=== PATIENT | female | born 1975 | race Caucasian/White ===

== ENCOUNTER 2016-12-23 10:14 | Observation (INO) | payer MEDICAID ==
[~2016-12-23] VITALS: Ht 162.6 cm; Wt 78.1 kg
[2016-12-23] MEDS ORDERED: QUET100T4 PO (11:00)
[2016-12-23] MEDS ORDERED: GABA600T PO (11:00)
[2016-12-23] MEDS ORDERED: SERT50TA PO (11:00)
[2016-12-23] MEDS ORDERED: BACITRACIN ZINC OINT 500U/GM, 0.9 GM ONE (11:16)
[2016-12-23 11:30] LABS: ASPARTATE AMINO TRANSFERASE 20 U/L (15-37); BLOOD UREA NITROGEN 10 mg/dL (7-18)
[2016-12-23 11:42] LABS: ACETAMINOPHEN < 2 mcg/mL (10-30)
[2016-12-23 11:48] LABS: DAU SCREEN DISCLAIMER
[2016-12-23] MEDS ORDERED: LORazepam 1MG TABLET ONE ×2 (11:53→15:17)
[2016-12-23] MEDS ORDERED: LORazepam 1MG TABLET PO ONE (12:00)
[2016-12-23] MEDS ORDERED: POLYETHYLENE GLYCOL 17 GM PACKET PO PRN (15:00)
[2016-12-23] MEDS ORDERED: BISACODYL 10 MG SUPP PR PRN (15:00)
[2016-12-23] MEDS ORDERED: ACETAMINOPHEN 325 MG TABLET PO PRN (15:00)
[2016-12-23] MEDS ORDERED: DOCUSATE 100 MG CAPSULE PO PRN (15:00)
[2016-12-23] MEDS: LORazepam 1MG TABLET PO PRN ×2 (15:19→22:23)
[2016-12-23 15:55] VITALS: BP 161/105
[2016-12-23] MEDS ORDERED: PRAZ2CAP2 PO (16:01)
[2016-12-23] MEDS ORDERED: BUPR1FIL3 SL (16:08)
[2016-12-23] MEDS: AMLODIPINE 5 MG TABLET PO SCH (16:15)
[2016-12-23 17:42] LABS: HCG UR OBC PASS
[2016-12-23 18:54] VITALS: BP 135/88
[2016-12-23 20:21] VITALS: BP 135/94
[2016-12-23] MEDS: QUETIAPINE 100MG TABLET PO SCH (21:00)
[2016-12-23] MEDS: PRAZOSIN 2 MG CAPSULE PO SCH (21:00)
[2016-12-23] MEDS: PHENOBARBITAL 100 MG TABLET PO SCH (22:22)
[2016-12-23] MEDS: GABAPENTIN 300 MG CAPSULE PO SCH (22:23)
[2016-12-24] MEDS: PRAZOSIN 2 MG CAPSULE PO SCH ×3 (07:55→20:47)
[2016-12-24] MEDS: AMLODIPINE 5 MG TABLET PO SCH (08:23)
[2016-12-24] MEDS: LORazepam 1MG TABLET PO PRN ×3 (08:23→17:10)
[2016-12-24] MEDS: GABAPENTIN 300 MG CAPSULE PO SCH ×2 (08:23→20:46)
[2016-12-24 08:41] VITALS: BP 144/91
[2016-12-24] MEDS ORDERED: SERTRALINE 50MG TABLET PO SCH (09:00)
[2016-12-24] MEDS ORDERED: QUETIAPINE 100MG TABLET PO SCH (09:00)
[2016-12-24] MEDS ORDERED: ERGOCALCIFEROL 50,000 UNIT CAPSULE PO SCH (10:30)
[2016-12-24 12:47] VITALS: BP 139/89
[2016-12-24] MEDS ORDERED: FERROUS GLUCONATE 324 MG TABLET PO SCH (18:30)
[2016-12-24 20:34] VITALS: BP 134/86
[2016-12-24] MEDS: QUETIAPINE 100MG TABLET PO SCH (20:47)
[2016-12-24] MEDS: PHENOBARBITAL 100 MG TABLET PO SCH (21:00)
== END 2016-12-24 21:00 ==
LOC: EDBD 10:14 → ED 11:39 → EDIP 12:28 → 3E 15:45
PROVIDERS: ADMIT Internal Medicine; ATTEND Internal Medicine
DX: R45.851 Suicidal ideations (principal); F32.9 Major depressive disorder, single episode, unspecified; F43.10 Post-traumatic stress disorder, unspecified; F41.1 Generalized anxiety disorder; G47.00 Insomnia, unspecified; D50.9 Iron deficiency anemia, unspecified; E55.9 Vitamin D deficiency, unspecified; Z91.410 Personal history of adult physical and sexual abuse; Z90.49 Acquired absence of other specified parts of digestive tract; Z98.51 Tubal ligation status; Z81.8 Family history of other mental and behavioral disorders
CPT/HCPCS: 36415; 80053; 80184; 80307; 80329; 81001; 81025; 82306; 82607; 82728; 83540; 83550; 84439; 84443; 84466; 85025; 99285; G0378; G0480

== ENCOUNTER 2017-01-05 16:47 | Emergency (ER) | payer MEDICAID ==
[~2017-01-05] VITALS: Ht 162.6 cm; Wt 79.7 kg
[~2017-01-05 16:47] MED LIST: BUPR1FIL3 SL; GABA600T PO; PRAZ2CAP2 PO; QUET100T4 PO; SERT50TA PO
[2017-01-05] MEDS ORDERED: ONDANSETRON 2MG/ML, 2ML IVPush ONE (17:30)
[2017-01-05] MEDS ORDERED: SODIUM CHLORIDE 0.9% 1,000ML IVBOLUS ONE (17:30)
[2017-01-05] MEDS ORDERED: MORPHINE SULFATE 4 MG/ML, 1ML ONE ×2 (17:31→18:32)
[2017-01-05] MEDS ORDERED: ONDANSETRON 2MG/ML, 2ML ONE (17:31)
[2017-01-05] MEDS: MORPHINE SULFATE 4 MG/ML, 1ML IVPush PRN ×2 (17:34→18:35)
[2017-01-05 18:00] LABS: ASPARTATE AMINO TRANSFERASE 19 U/L (15-37); BLOOD UREA NITROGEN 14 mg/dL (7-18)
[2017-01-05] MEDS ORDERED: SODIUM CHLORIDE FLUSH 10ML SYR IVF ONE (18:00)
[2017-01-05 19:31] VITALS: BP 146/92
== END 2017-01-05 19:33 | disposition home or self-care (01) ==
LOC: ED 18:46
DX: N39.0 Urinary tract infection, site not specified (principal); Z90.49 Acquired absence of other specified parts of digestive tract; Z88.0 Allergy status to penicillin; Z88.6 Allergy status to analgesic agent; Z88.8 Allergy status to other drugs, medicaments and biological substances
CPT/HCPCS: 36415; 74176; 80053; 81001; 84703; 85025; 87086; 96361; 96374; 96375; 96376; 99285; J2405; J7030

== ENCOUNTER 2017-01-12 11:14 | Emergency (ER) | payer MEDICAID ==
[~2017-01-12] VITALS: Ht 162.6 cm; Wt 78.6 kg
[2017-01-12] MEDS ORDERED: ONDANSETRON 2MG/ML, 2ML ONE (12:55)
[2017-01-12] MEDS ORDERED: MORPHINE SULFATE 4 MG/ML, 1ML ONE ×2 (12:55→13:34)
[2017-01-12] MEDS ORDERED: SODIUM CHLORIDE 0.9% 1,000ML IVBOLUS ONE (13:00)
[2017-01-12] MEDS ORDERED: SODIUM CHLORIDE FLUSH 10ML SYR IVF ONE (13:00)
[2017-01-12] MEDS ORDERED: MORPHINE SULFATE 4 MG/ML, 1ML IVPush PRN (13:00)
[2017-01-12] MEDS ORDERED: ONDANSETRON 2MG/ML, 2ML IVPush ONE (13:00)
[2017-01-12] MEDS ORDERED: QUET300T PO (13:04)
[2017-01-12] MEDS ORDERED: SERT100T5 PO (13:04)
[2017-01-12] MEDS ORDERED: PHEN100T2 PO (13:04)
[2017-01-12 13:23] LABS: ASPARTATE AMINO TRANSFERASE 16 U/L (15-37); BLOOD UREA NITROGEN 8 mg/dL (7-18)
[2017-01-12 14:56] VITALS: BP 163/101
== END 2017-01-12 14:58 | disposition home or self-care (01) ==
LOC: ED 13:14
DX: R30.0 Dysuria (principal); K21.9 Gastro-esophageal reflux disease without esophagitis; Z90.49 Acquired absence of other specified parts of digestive tract; Z88.0 Allergy status to penicillin; Z88.6 Allergy status to analgesic agent; Z88.8 Allergy status to other drugs, medicaments and biological substances
CPT/HCPCS: 36415; 80053; 81001; 83690; 84703; 85025; 87086; 96361; 96374; 96375; 99284; J2405; J7030

== ENCOUNTER 2017-01-15 13:50 | Inpatient (IN) | payer MEDICAID ==
[~2017-01-15] VITALS: Ht 162.6 cm; Wt 81.8 kg
[~2017-01-15 13:50] MED LIST changes: +PHEN100T2 PO; +QUET300T PO; +SERT100T5 PO
[2017-01-15] MEDS ORDERED: SODIUM CHLORIDE FLUSH 10ML SYR IVF ONE (14:30)
[2017-01-15] MEDS ORDERED: SODIUM CHLORIDE 0.9% 1,000ML IV ONE (14:30)
[2017-01-15 15:04] LABS: BLOOD UREA NITROGEN 7 mg/dL (7-18)
[2017-01-15 15:09] LABS: ASPARTATE AMINO TRANSFERASE 55 U/L (15-37)
[2017-01-15] MEDS ORDERED: MORPHINE SULFATE 4 MG/ML, 1ML IVPush PRN (16:30)
[2017-01-15] MEDS ORDERED: ACETAMINOPHEN 500 MG TABLET PO ONE (16:30)
[2017-01-15] MEDS ORDERED: ONDANSETRON 2MG/ML, 2ML IVPush ONE (16:30)
[2017-01-15] MEDS ORDERED: MORPHINE SULFATE 4 MG/ML, 1ML ONE (17:30)
[2017-01-15] MEDS ORDERED: ACETAMINOPHEN 500 MG TABLET ONE (17:30)
[2017-01-15] MEDS ORDERED: ONDANSETRON 2MG/ML, 2ML ONE (17:30)
[2017-01-15] MEDS ORDERED: HYDROmorphone 1 MG/ML, 1ML ONE ×3 (18:28→21:05)
[2017-01-15] MEDS: HYDROmorphone 1 MG/ML, 1ML IVPush PRN ×3 (18:30→21:09)
[2017-01-15] MEDS ORDERED: OMNIPAQUE 350 MG/ML, 100ML BOTTLE ONE (18:53)
[2017-01-15] MEDS ORDERED: PIPERACILLIN/TAZO/PMX 3.375GM 50 ML ONE (20:24)
[2017-01-15] MEDS ORDERED: PIPERACILLIN/TAZO/PMX 3.375GM 50 ML IV ONE (20:30)
[2017-01-15] MEDS: HYDROmorphone 2 MG/ML, 1ML IVPush PRN ×2 (21:09→23:50)
[2017-01-15] MEDS ORDERED: DOCUSATE 100 MG CAPSULE PO PRN (22:00)
[2017-01-15] MEDS: ENALAPRILAT 1.25 MG/ML, 2ML IVPush PRN (23:49)
[2017-01-15] MEDS: HEPARIN 5,000 UNITS/ML, 1ML SQ SCH (23:50)
[2017-01-15] MEDS: SODIUM CHLORIDE 0.9% 1,000 ML IV SCH (23:50)
[2017-01-16] MEDS: HYDROmorphone 2 MG/ML, 1ML IVPush PRN ×8 (00:07→21:30)
[2017-01-16] MEDS: ONDANSETRON 2MG/ML, 2ML IVPush PRN ×2 (00:07→05:52)
[2017-01-16 03:20] VITALS: BP 148/90
[2017-01-16] MEDS: PIPERACILLIN/TAZO/PMX 3.375GM 50 ML IV SCH ×3 (03:27→23:21)
[2017-01-16] MEDS ORDERED: POTASSIUM CHLORIDE 20 MEQ in SODIUM CHLORIDE 0.9% 250 ML IV ONE (03:30)
[2017-01-16 05:44] LABS: BLOOD UREA NITROGEN 7 mg/dL (7-18)
[2017-01-16] MEDS: SODIUM CHLORIDE 0.9% 1,000 ML IV SCH ×3 (05:51→21:31)
[2017-01-16] MEDS ORDERED: LORazepam 2 MG/ML, 1ML ONE (06:29)
[2017-01-16] MEDS ORDERED: LORazepam 2 MG/ML, 1ML IVPush ONE (06:30)
[2017-01-16 08:00] VITALS: BP 151/99
[2017-01-16] MEDS: HEPARIN 5,000 UNITS/ML, 1ML SQ SCH ×2 (09:03→16:00)
[2017-01-16 09:54] LABS: TOTAL IRON BINDING CAPACITY 368 mcg/dL (250-450)
[2017-01-16 09:55] LABS: ASPARTATE AMINO TRANSFERASE 39 U/L (15-37)
[2017-01-16 10:04] LABS: TRANSFERRIN 249 mg/dL (200-360)
[2017-01-16 12:43] VITALS: BP 173/112
[2017-01-16] MEDS ORDERED: PROMETHAZINE 12.5 MG SUPP PR PRN (15:00)
[2017-01-16] MEDS: PANTOPRAZOLE 40 MG IV IVPush SCH (15:30)
[2017-01-16] MEDS ORDERED: LORazepam 2 MG/ML, 1ML IVPush PRN (15:30)
[2017-01-16] MEDS ORDERED: ONDANSETRON 2MG/ML, 2ML IVPush SCH (16:00)
[2017-01-16 19:30] VITALS: BP 171/113
[2017-01-16 19:49] VITALS: BP 169/129
[2017-01-16] MEDS: ENALAPRILAT 1.25 MG/ML, 2ML IVPush PRN (19:49)
[2017-01-16] MEDS: ONDANSETRON 2MG/ML, 2ML IVPush SCH (23:21)
[2017-01-16] MEDS: QUETIAPINE 100MG TABLET PO SCH (23:22)
[2017-01-16] MEDS: PRAZOSIN 2 MG CAPSULE PO SCH (23:22)
[2017-01-17] MEDS: HEPARIN 5,000 UNITS/ML, 1ML SQ SCH ×3 (00:35→16:00)
[2017-01-17] MEDS: HYDROmorphone 2 MG/ML, 1ML IVPush PRN ×6 (00:36→20:06)
[2017-01-17 03:03] VITALS: BP 130/65
[2017-01-17] MEDS: PANTOPRAZOLE 40 MG IV IVPush SCH (03:52)
[2017-01-17] MEDS: ONDANSETRON 2MG/ML, 2ML IVPush SCH ×5 (03:52→20:06)
[2017-01-17 05:24] LABS: ASPARTATE AMINO TRANSFERASE 28 U/L (15-37); BLOOD UREA NITROGEN 5 mg/dL (7-18)
[2017-01-17] MEDS: SODIUM CHLORIDE 0.9% 1,000 ML IV SCH (05:31)
[2017-01-17 07:15] VITALS: BP 143/97
[2017-01-17] MEDS: PIPERACILLIN/TAZO/PMX 3.375GM 50 ML IV SCH ×2 (08:18→13:47)
[2017-01-17] MEDS ORDERED: POTASSIUM CHLORIDE 20 MEQ TAB.ER.PRT PO SCH (08:30)
[2017-01-17 09:42] LABS: HEPATITIS C VIRUS ANTIBODY Reactive (Nonreactive)
[2017-01-17] MEDS: IRON SUCROSE COMPLEX 100MG/5ML IV SCH (10:59)
[2017-01-17] MEDS: OXYcodone IR 5MG TABLET PO PRN ×2 (11:00→18:06)
[2017-01-17] MEDS ORDERED: POLYETHYLENE GLYCOL 17 GM PACKET PO PRN (11:00)
[2017-01-17] MEDS: SENNA/DOCUSATE TABLET PO SCH (13:46)
[2017-01-17] MEDS: LORazepam 0.5MG TABLET PO PRN (13:46)
[2017-01-17] MEDS: PANTOPRAZOLE 20MG TABLET PO SCH ×2 (13:46→20:06)
[2017-01-17] MEDS: PHENAZOPYRIDINE 100 MG TABLET PO PRN (13:47)
[2017-01-17 14:35] VITALS: BP 142/91
[2017-01-17 19:26] LABS: OCCBLD OBC PASS
[2017-01-17 19:53] VITALS: BP 152/96
[2017-01-17] MEDS: AMOXICILLIN/CLAV 875-125MG TABLET PO SCH (20:05)
[2017-01-17] MEDS: QUETIAPINE 100MG TABLET PO SCH (20:06)
[2017-01-17] MEDS: PRAZOSIN 2 MG CAPSULE PO SCH (20:07)
[2017-01-17] MEDS ORDERED: SODIUM CHLORIDE 0.9% 1,000 ML IV SCH (21:31)
[2017-01-18] MEDS: HYDROmorphone 2 MG/ML, 1ML IVPush PRN ×3 (00:37→08:35)
[2017-01-18] MEDS: ONDANSETRON 2MG/ML, 2ML IVPush SCH ×3 (00:37→08:35)
[2017-01-18 02:00] VITALS: BP 142/96
[2017-01-18] MEDS: OXYcodone IR 5MG TABLET PO PRN ×3 (05:48→13:52)
[2017-01-18 05:49] LABS: BLOOD UREA NITROGEN 5 mg/dL (7-18)
[2017-01-18 05:55] LABS: ASPARTATE AMINO TRANSFERASE 26 U/L (15-37)
[2017-01-18 07:00] VITALS: BP 148/97
[2017-01-18] MEDS ORDERED: POTASSIUM CHLORIDE 20 MEQ TAB.ER.PRT PO SCH (08:27)
[2017-01-18] MEDS: HEPARIN 5,000 UNITS/ML, 1ML SQ SCH ×3 (08:35→16:00)
[2017-01-18] MEDS: AMOXICILLIN/CLAV 875-125MG TABLET PO SCH (08:35)
[2017-01-18] MEDS: IRON SUCROSE COMPLEX 100MG/5ML IV SCH (08:35)
[2017-01-18] MEDS: PANTOPRAZOLE 20MG TABLET PO SCH (08:36)
[2017-01-18] MEDS: PHENAZOPYRIDINE 100 MG TABLET PO PRN (08:36)
[2017-01-18] MEDS: SENNA/DOCUSATE TABLET PO SCH (09:00)
[2017-01-18] MEDS ORDERED: MAGNESIUM SULFATE PMX 4GM/100M 100 ML IV ONE (09:30)
[2017-01-18] MEDS ORDERED: ONDANSETRON ODT 4 MG PO PRN (09:30)
[2017-01-18] MEDS: LORazepam 0.5MG TABLET PO PRN (10:01)
[2017-01-18 11:31] LABS: OCCBLD OBC PASS
[2017-01-18] MEDS ORDERED: MAALOX/HYOSCYAMINE/LIDOCAINE 45 ML BOTTLE PO ONE (12:30)
[2017-01-18 12:49] VITALS: BP 185/127
[2017-01-18] MEDS: LACTOBACILLUS CHEW TABLET PO SCH ×2 (12:58→16:00)
[2017-01-18 13:19] LABS: IS PT STATUS REG ER OR PRE ER? NO
[2017-01-18] MEDS ORDERED: AMOX1TAB12 PO (16:40)
[2017-01-18] MEDS ORDERED: PANT20TA3 PO (16:40)
[2017-01-18] MEDS ORDERED: OXYC5TAB3 PO (16:40)
[2017-01-18] MEDS ORDERED: LORA-445 PO (16:40)
[2017-01-18] MEDS ORDERED: ONDA4TAB13 PO (16:40)
[2017-01-18] MEDS ORDERED: LISI5TAB7 PO (16:40)
[2017-01-18] MEDS ORDERED: ACID1TAB7 PO (16:40)
[2017-01-18] MEDS ORDERED: DOCU-30 PO (16:43)
[2017-01-18] MEDS ORDERED: FERR500P8 PO (16:43)
[2017-01-19 13:06] LABS: HEPATITIS C PCR QUANTITATION HCV Not Detected IU/mL (.)
== END 2017-01-18 17:17 | disposition home or self-care (01) | DRG 392 ==
LOC: ED 20:21 → EDIP 20:22 → ED 20:55 → 3NE 21:40
PROVIDERS: ADMIT Internal Medicine; ATTEND Internal Medicine
PROC: 0T9B70Z Drainage of Bladder with Drainage Device, Via Natural or Artificial Opening (ICD-10-PCS; principal; 2017-01-15)
DX: R10.9 Unspecified abdominal pain (principal); E87.1 Hypo-osmolality and hyponatremia; E87.6 Hypokalemia; F43.10 Post-traumatic stress disorder, unspecified; R50.9 Fever, unspecified; I10 Essential (primary) hypertension; K44.9 Diaphragmatic hernia without obstruction or gangrene; K21.9 Gastro-esophageal reflux disease without esophagitis; D50.9 Iron deficiency anemia, unspecified; Z90.49 Acquired absence of other specified parts of digestive tract; Z79.899 Other long term (current) drug therapy; Z98.51 Tubal ligation status; Z88.5 Allergy status to narcotic agent; Z88.0 Allergy status to penicillin; Z88.8 Allergy status to other drugs, medicaments and biological substances; Z82.5 Family history of asthma and other chronic lower respiratory diseases; Z81.8 Family history of other mental and behavioral disorders; Z91.013 Allergy to seafood
CPT/HCPCS: 36415; 71020; 74177; 74181; 76770; 80048; 80053; 80074; 80076; 81003; 82272; 82728; 83540; 83550; 83605; 83690; 83735; 84100; 84145; 84443; 84466; 84484; 84703; 85025; 87040; 87324; 87491; 87521; 87522; 87591; 93005; 96361; 96365; 96375; 96376; J1170; J1644; J1756; J2405; J2543; J3480; Q9967; C9113; J2060; J3475; J7030; J7050

== ENCOUNTER 2017-01-20 21:06 | Emergency (ER) | payer MEDICAID ==
[~2017-01-20] VITALS: Ht 162.6 cm; Wt 76.9 kg
[~2017-01-20 21:06] MED LIST changes: +ACID1TAB7 PO; +AMOX1TAB12 PO; +DOCU-30 PO; +FERR500P8 PO; +LISI5TAB7 PO; +LORA-445 PO; +ONDA4TAB13 PO; +OXYC5TAB3 PO; +PANT20TA3 PO
[2017-01-20] MEDS ORDERED: methylPREDNISolone SOD SUCC 125 MG/2 ML IM SCH (23:00)
[2017-01-20] MEDS ORDERED: HYDROmorphone 1 MG/ML, 1ML IM ONE (23:00)
[2017-01-20] MEDS ORDERED: methylPREDNISolone SOD SUCC 125 MG/2 ML ONE (23:19)
[2017-01-20] MEDS ORDERED: HYDROmorphone 1 MG/ML, 1ML ONE (23:19)
[2017-01-20] MEDS ORDERED: ASPIRIN 325 MG TABLET EC ONE (23:19)
[2017-01-20 23:25] LABS: BLOOD UREA NITROGEN 13 mg/dL (7-18)
[2017-01-20 23:30] VITALS: BP 173/111
[2017-01-20] MEDS ORDERED: ASPIRIN 325 MG TABLET PEG ONE (23:30)
[2017-01-21] MEDS ORDERED: HYDROmorphone 1 MG/ML, 1ML ONE (00:24)
[2017-01-21] MEDS ORDERED: HYDROmorphone 1 MG/ML, 1ML IM ONE (00:30)
== END 2017-01-21 01:20 | disposition home or self-care (01) ==
LOC: ED 23:08
DX: I80.8 Phlebitis and thrombophlebitis of other sites (principal); K21.9 Gastro-esophageal reflux disease without esophagitis; Z79.82 Long term (current) use of aspirin; Z90.49 Acquired absence of other specified parts of digestive tract
CPT/HCPCS: 36415; 80048; 81001; 82040; 85025; 93971; 96372; 99285; J1170; J2930

== ENCOUNTER 2017-01-22 15:17 | Observation (INO) | payer MEDICAID ==
[~2017-01-22] VITALS: Ht 162.6 cm; Wt 65.0 kg
[2017-01-22] MEDS ORDERED: ZIPRASIDONE 20 MG INJ IM ONE (15:28)
[2017-01-22] MEDS ORDERED: ZIPRASIDONE 20MG CAPSULE ONE (15:44)
[2017-01-22] MEDS ORDERED: PLEASE ENTER HEIGHT AND WEIGHT MC SCH (16:00)
[2017-01-22] MEDS ORDERED: ZIPRASIDONE 20MG CAPSULE PO ONE (16:00)
[2017-01-22 16:11] LABS: ASPARTATE AMINO TRANSFERASE 20 U/L (15-37); BLOOD UREA NITROGEN 12 mg/dL (7-18)
[2017-01-22 16:15] LABS: ACETAMINOPHEN < 2 mcg/mL (10-30)
[2017-01-22] MEDS ORDERED: ONDANSETRON ODT 4 MG PO ONE (16:30)
[2017-01-22] MEDS ORDERED: ACETAMINOPHEN 325 MG TABLET PO ONE (16:30)
[2017-01-22] MEDS ORDERED: ONDANSETRON ODT 4 MG ONE (17:24)
[2017-01-22] MEDS ORDERED: ACETAMINOPHEN 325 MG TABLET ONE (17:24)
[2017-01-22] MEDS ORDERED: LISINOPRIL 5 MG TABLET PO ONE (17:30)
[2017-01-22] MEDS ORDERED: POLYETHYLENE GLYCOL 17 GM PACKET PO PRN (17:30)
[2017-01-22] MEDS ORDERED: BISACODYL 10 MG SUPP PR PRN (17:30)
[2017-01-22] MEDS ORDERED: DOCUSATE 100 MG CAPSULE PO PRN (17:30)
[2017-01-22] MEDS ORDERED: LORazepam 1MG TABLET ONE (18:07)
[2017-01-22 21:38] LABS: DAU SCREEN DISCLAIMER
[2017-01-23] MEDS: LORazepam 1MG TABLET PO PRN ×4 (04:11→19:25)
[2017-01-23 07:44] VITALS: BP 163/113
[2017-01-23] MEDS: LISINOPRIL 5 MG TABLET PO SCH (07:52)
[2017-01-23] MEDS: ACETAMINOPHEN 325 MG TABLET PO PRN (08:16)
[2017-01-23 08:50] VITALS: BP 136/78
[2017-01-23] MEDS: GABAPENTIN 300 MG CAPSULE PO SCH ×4 (09:00→20:04)
[2017-01-23] MEDS: FERROUS SULFATE 325 MG TABLET PO SCH ×4 (09:00→20:04)
[2017-01-23] MEDS: SERTRALINE 100MG TABLET PO SCH (09:04)
[2017-01-23] MEDS: QUETIAPINE 100MG TABLET PO SCH (09:05)
[2017-01-23] MEDS: ENOXAPARIN 40 MG/0.4 ML SQ SCH (16:17)
[2017-01-23 20:52] VITALS: BP 131/86
[2017-01-23] MEDS: PRAZOSIN 2 MG CAPSULE PO SCH ×2 (21:01→21:03)
[2017-01-24 07:12] VITALS: BP 128/74
[2017-01-24] MEDS: FERROUS SULFATE 325 MG TABLET PO SCH ×3 (08:22→20:06)
[2017-01-24] MEDS: SERTRALINE 100MG TABLET PO SCH (08:22)
[2017-01-24] MEDS: LISINOPRIL 5 MG TABLET PO SCH (08:22)
[2017-01-24] MEDS: ASPIRIN 325 MG TABLET PO SCH (08:22)
[2017-01-24] MEDS: GABAPENTIN 300 MG CAPSULE PO SCH ×3 (08:23→20:06)
[2017-01-24] MEDS: LORazepam 1MG TABLET PO PRN (08:30)
[2017-01-24] MEDS: QUETIAPINE 100MG TABLET PO SCH ×2 (09:00→20:07)
[2017-01-24] MEDS ORDERED: LORazepam 1MG TABLET PO ONE (12:30)
[2017-01-24] MEDS: ENOXAPARIN 40 MG/0.4 ML SQ SCH (16:10)
[2017-01-24] MEDS: PROPRANOLOL 10 MG TABLET PO SCH (18:02)
[2017-01-24 19:52] VITALS: BP 166/102
[2017-01-24] MEDS: PRAZOSIN 2 MG CAPSULE PO SCH (20:06)
[2017-01-24 20:38] VITALS: BP 138/77
[2017-01-25 06:12] VITALS: BP 135/75
[2017-01-25] MEDS: PROPRANOLOL 10 MG TABLET PO SCH (06:12)
[2017-01-25] MEDS: LORazepam 1MG TABLET PO PRN ×3 (07:05→15:59)
[2017-01-25 08:00] VITALS: BP 129/75
[2017-01-25] MEDS: ASPIRIN 325 MG TABLET PO SCH (08:02)
[2017-01-25] MEDS: LISINOPRIL 5 MG TABLET PO SCH (08:02)
[2017-01-25] MEDS: FERROUS SULFATE 325 MG TABLET PO SCH ×3 (08:03→20:10)
[2017-01-25] MEDS: ACETAMINOPHEN 325 MG TABLET PO PRN (08:03)
[2017-01-25] MEDS: GABAPENTIN 300 MG CAPSULE PO SCH (08:03)
[2017-01-25] MEDS: SERTRALINE 100MG TABLET PO SCH (08:23)
[2017-01-25] MEDS ORDERED: BENZTROPINE 1 MG TABLET PO ONE (13:51)
[2017-01-25] MEDS: GABAPENTIN 400 MG CAPSULE PO SCH ×2 (15:09→20:10)
[2017-01-25] MEDS: ENOXAPARIN 40 MG/0.4 ML SQ SCH (15:11)
[2017-01-25] MEDS: QUETIAPINE 25MG TABLET PO PRN (16:55)
[2017-01-25 19:26] VITALS: BP 166/87
[2017-01-25] MEDS: PRAZOSIN 2 MG CAPSULE PO SCH (20:11)
[2017-01-25] MEDS: BENZTROPINE 1 MG TABLET PO SCH (20:11)
[2017-01-25] MEDS ORDERED: QUETIAPINE 100MG TABLET PO ONE (21:00)
[2017-01-26] MEDS: PANTOPRAZOLE GRAN. PKT 40 MG PO SCH (06:09)
[2017-01-26 06:20] VITALS: BP 159/95
[2017-01-26] MEDS: LORazepam 1MG TABLET PO PRN ×2 (06:39→10:31)
[2017-01-26 07:17] VITALS: BP 164/110
[2017-01-26] MEDS: LISINOPRIL 5 MG TABLET PO SCH (07:37)
[2017-01-26] MEDS: ASPIRIN 325 MG TABLET PO SCH (08:44)
[2017-01-26] MEDS: BENZTROPINE 1 MG TABLET PO SCH ×2 (08:44→20:08)
[2017-01-26] MEDS: GABAPENTIN 400 MG CAPSULE PO SCH ×3 (08:45→20:08)
[2017-01-26] MEDS: SERTRALINE 100MG TABLET PO SCH (08:45)
[2017-01-26] MEDS: FERROUS SULFATE 325 MG TABLET PO SCH ×3 (08:46→20:08)
[2017-01-26] MEDS: QUETIAPINE 25MG TABLET PO PRN (09:50)
[2017-01-26] MEDS ORDERED: ZIPRASIDONE 20 MG INJ IM PRN (12:00)
[2017-01-26] MEDS ORDERED: LORazepam 2 MG/ML, 1ML IM PRN (15:30)
[2017-01-26] MEDS: ENOXAPARIN 40 MG/0.4 ML SQ SCH (16:00)
[2017-01-26] MEDS: LORazepam 2 MG/ML, 1ML IM PRN ×3 (16:01→20:57)
[2017-01-26 19:37] VITALS: BP 159/102
[2017-01-26] MEDS: PRAZOSIN 2 MG CAPSULE PO SCH (20:08)
[2017-01-26] MEDS: QUETIAPINE 100MG TABLET PO SCH (20:08)
[2017-01-26] MEDS ORDERED: QUETIAPINE 100MG TABLET PO SCH (21:00)
[2017-01-26] MEDS ORDERED: QUETIAPINE 200 MG TABLET PO SCH (21:00)
[2017-01-27] VITALS (7 sets, daily range): BP systolic 141–187; BP diastolic 82–131
[2017-01-27] MEDS: PANTOPRAZOLE GRAN. PKT 40 MG PO SCH (06:46)
[2017-01-27] MEDS: BENZTROPINE 1 MG TABLET PO SCH ×3 (07:44→22:18)
[2017-01-27] MEDS: SERTRALINE 100MG TABLET PO SCH (07:45)
[2017-01-27] MEDS: LORazepam 1MG TABLET PO PRN ×3 (07:46→16:19)
[2017-01-27] MEDS: GABAPENTIN 400 MG CAPSULE PO SCH ×4 (07:46→22:18)
[2017-01-27] MEDS: LISINOPRIL 5 MG TABLET PO SCH (07:46)
[2017-01-27] MEDS: ASPIRIN 325 MG TABLET PO SCH (07:46)
[2017-01-27] MEDS: FERROUS SULFATE 325 MG TABLET PO SCH ×4 (07:46→21:00)
[2017-01-27] MEDS: ACETAMINOPHEN 325 MG TABLET PO PRN (07:46)
[2017-01-27] MEDS: ENOXAPARIN 40 MG/0.4 ML SQ SCH (16:19)
[2017-01-27] MEDS: LISINOPRIL 10 MG TABLET PO SCH ×2 (20:50→22:18)
[2017-01-27] MEDS: PRAZOSIN 2 MG CAPSULE PO SCH ×2 (20:50→22:19)
[2017-01-27] MEDS: QUETIAPINE 100MG TABLET PO SCH ×2 (20:50→22:20)
[2017-01-28] VITALS (8 sets, daily range): BP systolic 113–170; BP diastolic 76–131
[2017-01-28] MEDS: PANTOPRAZOLE GRAN. PKT 40 MG PO SCH (06:00)
[2017-01-28] MEDS: ASPIRIN 325 MG TABLET PO SCH (07:58)
[2017-01-28] MEDS: BENZTROPINE 1 MG TABLET PO SCH ×2 (07:59→20:55)
[2017-01-28] MEDS: FERROUS SULFATE 325 MG TABLET PO SCH ×3 (07:59→20:58)
[2017-01-28] MEDS: GABAPENTIN 400 MG CAPSULE PO SCH (08:00)
[2017-01-28] MEDS: LISINOPRIL 10 MG TABLET PO SCH ×2 (08:00→20:55)
[2017-01-28] MEDS: SERTRALINE 100MG TABLET PO SCH (08:00)
[2017-01-28] MEDS: LORazepam 1MG TABLET PO PRN ×2 (08:01→15:43)
[2017-01-28] MEDS: GUANFACINE 1 MG TABLET PO SCH ×2 (11:50→20:56)
[2017-01-28] MEDS: ENOXAPARIN 40 MG/0.4 ML SQ SCH (15:45)
[2017-01-28] MEDS: ACETAMINOPHEN 325 MG TABLET PO PRN (17:28)
[2017-01-28] MEDS: GABAPENTIN 300 MG CAPSULE PO SCH ×2 (17:28→20:54)
[2017-01-28] MEDS ORDERED: ALUMINUM/MAG/SIMETHICONE 30 ML UDC PO PRN (18:30)
[2017-01-28] MEDS: QUETIAPINE 100MG TABLET PO SCH (20:56)
[2017-01-29] MEDS: PANTOPRAZOLE GRAN. PKT 40 MG PO SCH (06:05)
[2017-01-29] MEDS: LORazepam 1MG TABLET PO PRN ×2 (06:13→12:21)
[2017-01-29 08:42] VITALS: BP 117/82
[2017-01-29] MEDS: GABAPENTIN 300 MG CAPSULE PO SCH ×3 (08:51→19:59)
[2017-01-29] MEDS: GUANFACINE 1 MG TABLET PO SCH (08:51)
[2017-01-29] MEDS: BENZTROPINE 1 MG TABLET PO SCH ×2 (08:51→19:57)
[2017-01-29] MEDS: SERTRALINE 100MG TABLET PO SCH (08:51)
[2017-01-29] MEDS: ASPIRIN 325 MG TABLET PO SCH (08:52)
[2017-01-29] MEDS: LISINOPRIL 10 MG TABLET PO SCH ×2 (08:52→19:57)
[2017-01-29] MEDS: FERROUS SULFATE 325 MG TABLET PO SCH ×3 (08:52→20:00)
[2017-01-29] MEDS ORDERED: QUETIAPINE 25MG TABLET PO PRN (16:30)
[2017-01-29] MEDS: ENOXAPARIN 40 MG/0.4 ML SQ SCH (16:42)
[2017-01-29] MEDS: ACETAMINOPHEN 325 MG TABLET PO PRN (19:58)
[2017-01-29] MEDS: QUETIAPINE 100MG TABLET PO SCH (19:58)
[2017-01-29 20:03] VITALS: BP 148/78
[2017-01-29 20:36] VITALS: BP 148/78
[2017-01-29] MEDS ORDERED: PRAZOSIN 2 MG CAPSULE PO SCH (21:00)
[2017-01-30] MEDS: PANTOPRAZOLE GRAN. PKT 40 MG PO SCH (06:12)
[2017-01-30 07:07] VITALS: BP 136/79
[2017-01-30] MEDS: BENZTROPINE 1 MG TABLET PO SCH (08:02)
[2017-01-30] MEDS: ASPIRIN 325 MG TABLET PO SCH (08:03)
[2017-01-30] MEDS: SERTRALINE 100MG TABLET PO SCH (08:03)
[2017-01-30] MEDS: LISINOPRIL 10 MG TABLET PO SCH (08:03)
[2017-01-30] MEDS: GABAPENTIN 300 MG CAPSULE PO SCH (08:03)
[2017-01-30] MEDS: FERROUS SULFATE 325 MG TABLET PO SCH (08:04)
[2017-01-30] MEDS ORDERED: QUET25TA5 PO (10:23)
[2017-01-30] MEDS ORDERED: LISI5TAB7 PO (12:03)
[2017-01-30] MEDS ORDERED: MULT-484 PO (12:03)
[2017-01-30] MEDS ORDERED: BENZ1TAB61 PO (12:03)
[2017-01-30] MEDS ORDERED: PANT20TA3 PO (12:03)
== END 2017-01-30 12:20 | disposition short-term general hospital (02) ==
LOC: ED 17:05 → EDIP 17:06 → ED 17:26 → 3E 01-23 03:53
PROVIDERS: ADMIT Internal Medicine; ATTEND Internal Medicine
DX: S50.811A Abrasion of right forearm, initial encounter (principal); S50.812A Abrasion of left forearm, initial encounter; D50.9 Iron deficiency anemia, unspecified; E87.1 Hypo-osmolality and hyponatremia; I10 Essential (primary) hypertension; F22 Delusional disorders; F41.1 Generalized anxiety disorder; F43.10 Post-traumatic stress disorder, unspecified; F60.3 Borderline personality disorder; I80.9 Phlebitis and thrombophlebitis of unspecified site; K21.9 Gastro-esophageal reflux disease without esophagitis; X78.9XXA Intentional self-harm by unspecified sharp object, initial encounter; Y93.89 Activity, other specified; Y92.89 Other specified places as the place of occurrence of the external cause; Y99.8 Other external cause status; Z82.3 Family history of stroke; Z83.3 Family history of diabetes mellitus; Z86.59 Personal history of other mental and behavioral disorders; Z86.72 Personal history of thrombophlebitis; Z91.19 Patient's noncompliance with other medical treatment and regimen; Z91.5 Personal history of self-harm; Z98.51 Tubal ligation status; Z90.49 Acquired absence of other specified parts of digestive tract
CPT/HCPCS: 36415; 74000; 80053; 80307; 80329; 81001; 82550; 84443; 84703; 85025; 93971; 96372; 99285; G0378; J1650; J2060; Q0162; G0480